=== PATIENT | male | born 1940 | race Caucasian/White ===

== ENCOUNTER → 2018-11-16 17:35 | Outpatient (REF) | payer MEDICARE, SELFPAY ==
[2018-11-16 18:53] LABS: Add Manual Diff / Slide Review NO; Basophils Absolute Auto 100 /uL (0-100); Basophils Percent Auto 0.7 % (0-2); Eosinophils Absolute Auto 200 /uL (0-450); Eosinophils Percent Auto 2.3 % (2-4); Hematocrit 43.5 % (41-53); Hemoglobin 14.4 g/dL (13.5-17.5); Lymphocytes Absolute Auto 2700 /uL (1100-4500); Lymphocytes Percent Auto 38.3 % (25-40); Mean Corpuscular HGB Conc 33.1 % (30-36); Mean Corpuscular Hemoglobin 31.1 PG (26-34); Mean Corpuscular Volume 93.9 fL (80-100); Monocytes Absolute Auto 600 /uL (0-900); Monocytes Percent Auto 8.5 % (3-14); Neutrophils Absolute Auto 3600 /uL (1500-7000); Neutrophils Percent Auto 50.2 % (50-75); Platelet Count 164 X10^3/uL (150-400); Red Blood Cell Count 4.63 X10^6/uL (4.5-5.9); Red Cell Distribution Width 13.2 % (11.6-14.8); White Blood Cell Count 7.1 X10^3/uL (4.5-11.0)
[2018-11-16 19:06] LABS: Alanine Aminotransferase 44 IU/L (21-72); Albumin 4.1 g/dL (3.5-5.0); Albumin Globulin Ratio 1.3 (1.0-2.8); Alkaline Phosphatase 69 U/L (38-126); Aspartate Aminotransferase 28 IU/L (17-59); BUN Creatinine Ratio 18.8 (6-22); Bilirubin Total 0.5 mg/dL (0.2-1.3); Blood Urea Nitrogen 15 mg/dL (9-20); Calcium 9.2 mg/dL (8.4-10.2); Carbon Dioxide 25 mmol/L (22-32); Chloride 99 mmol/L (98-107); Cholesterol 111 mg/dL (140-199); Estimated Glomerular Filt Rate > 60.0 mL/min (>60); Globulin 3.1 g/dL (1.7-4.1); Glucose 193 mg/dL (80-110); HDL Cholesterol 30 mg/dL (40-60); HEMOLYSIS < 15 (0-50); LDL Cholesterol Calculated 44 mg/dL (<100); Potassium 4.4 mmol/L (3.4-5.1); Sodium 136 mmol/L (137-145); Total Protein 7.2 g/dL (6.3-8.2); Triglycerides 185 mg/dL (35-150)
[2018-11-16 19:07] LABS: Creatinine Urine Random 104.5 mg/dL
[2018-11-16 19:12] LABS: Microalbumi Creatinin Ratio Ur 35.4 ug/mg CR (<30); Microalbumin Urine Random 3.7 mg/dL (0-1.6)
[2018-11-16 19:29] LABS: Hemoglobin A1C% w Est Avg Glu 8.7 % (4.0-6.0)
[2018-11-16 19:36] LABS: Prostate Specific Antigen 1.05 ng/mL (0.10-4.00)
[2018-11-17 08:03] LABS: Vitamin B12 267 pg/mL (239-931)
== END ==
LOC: LAB 17:35
PROVIDERS: Visit Provider Family Medicine Geriatric Medicine
DX: E78.5 Hyperlipidemia, unspecified (principal); E11.69 Type 2 diabetes mellitus with other specified complication; Z13.5 Encounter for screening for eye and ear disorders
CPT/HCPCS: 36415; 80053; 80061; 82043; 82570; 82607; 83036; 84153; 85025

== ENCOUNTER → 2025-05-17 08:36 | Outpatient (CLI) | payer MEDICARE, SELFPAY | PROVIDERS: PCP Physician Assistant; Referring Provider Physician Assistant; Visit Provider Surgery | DX: E11.621 Type 2 diabetes mellitus with foot ulcer (principal); L97.412 Non-pressure chronic ulcer of right heel and midfoot with fat layer exposed; R60.0 Localized edema; E11.42 Type 2 diabetes mellitus with diabetic polyneuropathy | CPT/HCPCS: 11042; 87070; 87077; 87147; 87186; 87205; 99203; 99214 ==

== ENCOUNTER → 2025-05-24 09:20 | Outpatient (CLI) | payer MEDICARE, SELFPAY ==
--- NOTE | 2025-05-24 09:21 | DI.RAD.S_ITS ---
PROCEDURE: XR FOOT RT MIN 3V INDICATIONS: Non-healing ulcer of right heel. Eval for osteo. TECHNIQUE: 3 views of the foot were acquired. COMPARISON: None. FINDINGS: Bones: No fractures or dislocations. Osteoarthritic changes are noted throughout right foot. No gross cortical erosion or abnormal periosteal reaction is seen. No suspicious bony lesions. Soft tissues: Corticated calcifications are noted in posterior right lower leg soft tissue likely posttraumatic in etiology. No significant subcutaneous emphysema. Dorsal forefoot soft tissue swelling is seen. IMPRESSION: Osteoarthritic changes throughout right foot. No fracture or dislocation. No radiographic evidence of osteomyelitis. Dorsal soft tissue swelling in right forefoot. Likely posttraumatic calcifications noted in posterior lower leg along the expected location of Achilles tendon. Shallow ulceration in posterior right heel. Dictated by: Raymon Christopher M.D. on 05/24/2025 at 11:09 Approved by: Raymon Christopher M.D. on 05/24/2025 at 11:15
--- NOTE | 2025-05-24 09:21 | DI.US.S_ITS ---
PROCEDURE: US ARTERIAL DUPLEX LE BI INDICATIONS: ISIDRA result of PAD, no-healing ulcer of right heel TECHNIQUE: Color and pulse Doppler interrogation was performed of both lower extremity arterial systems, with image documentation. COMPARISON: None. FINDINGS: Right lower extremity: Common femoral artery: 117 cm/sec, with multiphasic flow. Deep femoral artery: 80 cm/sec, with multiphasic flow. Proximal superficial femoral artery: 87 cm/sec, with multiphasic flow. Mid superficial femoral artery: 71 cm/sec, with multiphasic flow. Distal superficial femoral artery: 39 cm/sec, with multiphasic flow. Popliteal artery: 70 cm/sec, with multiphasic flow. Posterior tibial artery: 77 cm/sec, with monophasic flow. Anterior tibial artery/dorsalis pedis: 76/63 cm/sec, with monophasic flow. Dasilva-scale imaging description: Wide patency from the common femoral through the popliteal with normal waveforms. Small vessel disease with monophasic waveforms in the posterior tibial artery and anterior tibial artery. Left lower extremity: Common femoral artery: 121 cm/sec, with multiphasic flow. Deep femoral artery: 95 cm/sec, with multiphasic flow. Proximal superficial femoral artery: 92 cm/sec, with multiphasic flow. Mid superficial femoral artery: 67 cm/sec, with multiphasic flow. Distal superficial femoral artery: 46 cm/sec, with multiphasic flow. Popliteal artery: 75 cm/sec, with multiphasic flow. Posterior tibial artery: 46 cm/sec in the midportion, with multiphasic flow. Diminished flow distally, 16 centimeter/second. Anterior tibial artery/dorsalis pedis: 49 cm/sec, with multiphasic flow. Dasilva-scale imaging description: Wide patency from the common femoral through the popliteal. Small vessel disease wall. IMPRESSION: 1. Wide patency is present from the common femoral through the popliteal bilaterally. There are normal waveforms bilaterally in these vessels. 2. Bilateral small vessel disease. Dictated by: Dwain Spears M.D. on 05/27/2025 at 9:09 Approved by: Dwain Spears M.D. on 05/27/2025 at 9:14
== END ==
PROVIDERS: PCP Physician Assistant; Referring Provider Surgery; Visit Provider Surgery
DX: E11.621 Type 2 diabetes mellitus with foot ulcer (principal); L97.412 Non-pressure chronic ulcer of right heel and midfoot with fat layer exposed; E11.42 Type 2 diabetes mellitus with diabetic polyneuropathy; R60.0 Localized edema
CPT/HCPCS: 11042; 73630; 93925

== ENCOUNTER → 2025-05-24 15:26 | Outpatient (CLI) | payer MEDICARE, SELFPAY | PROVIDERS: PCP Physician Assistant; Referring Provider Physician Assistant; Visit Provider Surgery | DX: E11.621 Type 2 diabetes mellitus with foot ulcer (principal); L97.412 Non-pressure chronic ulcer of right heel and midfoot with fat layer exposed; E11.42 Type 2 diabetes mellitus with diabetic polyneuropathy; R60.0 Localized edema | CPT/HCPCS: 11042 ==

== ENCOUNTER → 2025-05-31 14:30 | Outpatient (CLI) | payer MEDICARE, SELFPAY | LOC: WC 06-01 11:37 | PROVIDERS: PCP Physician Assistant; Referring Provider Physician Assistant; Visit Provider Surgery | DX: E11.621 Type 2 diabetes mellitus with foot ulcer (principal); L97.412 Non-pressure chronic ulcer of right heel and midfoot with fat layer exposed; L98.8 Other specified disorders of the skin and subcutaneous tissue; E11.40 Type 2 diabetes mellitus with diabetic neuropathy, unspecified; E11.51 Type 2 diabetes mellitus with diabetic peripheral angiopathy without gangrene | CPT/HCPCS: 11042 ==

== ENCOUNTER → 2025-06-14 15:21 | Outpatient (CLI) | payer MEDICARE, SELFPAY | LOC: WC 15:23 | PROVIDERS: PCP Physician Assistant; Referring Provider Physician Assistant; Visit Provider Surgery | DX: L97.412 Non-pressure chronic ulcer of right heel and midfoot with fat layer exposed (principal); E11.621 Type 2 diabetes mellitus with foot ulcer; E11.42 Type 2 diabetes mellitus with diabetic polyneuropathy; L53.9 Erythematous condition, unspecified; R23.3 Spontaneous ecchymoses; R60.0 Localized edema | CPT/HCPCS: 11042; 87070; 87075; 87077; 87186; 87205; 99213 ==

== ENCOUNTER → 2025-06-21 14:33 | Outpatient (CLI) | payer MEDICARE, SELFPAY | LOC: WC 14:34 | PROVIDERS: PCP Physician Assistant; Referring Provider Physician Assistant; Visit Provider Surgery | DX: E11.621 Type 2 diabetes mellitus with foot ulcer (principal); E11.628 Type 2 diabetes mellitus with other skin complications; L97.412 Non-pressure chronic ulcer of right heel and midfoot with fat layer exposed; L89.890 Pressure ulcer of other site, unstageable; E11.42 Type 2 diabetes mellitus with diabetic polyneuropathy; L53.8 Other specified erythematous conditions | CPT/HCPCS: 11042; 97597; 97598; 99213 ==